=== PATIENT | female | born 1940 | race Caucasian/White ===

== ENCOUNTER 2016-07-25 13:08 | Emergency (ER) | payer OTHER ==
[~2016-07-25] VITALS: Ht 162.6 cm; Wt 90.7 kg
--- NOTE | ~2016-07-25 | EKG ---
[place] [address] [facility] [employer] [place] [address] ELECTROCARDIOGRAM REPORT Name: NORBERTO PLEITEZ MANI [facility]: [facility] [id number] Admission: 07/25/16 Attend Phys: Discharge: 07/25/16 Date of : 42 Report #: [id number] THIS REPORT FOR: //name// [facility] ED Test Date: 2016-07-25 Test Time: 13:13:08 Pat Name: NORBERTO PLEITEZ Department: Room: Gender: F Instrumentation Designer: MZOOK : 1940 Requested By: Uriel Gil Order Number: [id number] MD: Charbel Colon Measurements Intervals [place] Rate: 63 P: 2 MN: 179 QRS: 15 QRSD: 98 T: 49 QT: 432 QTc: 443 Interpretive Statements Sinus rhythm Low voltage, precordial leads No previous ECG available for comparison Electronically Signed On 07-26-2016 7:55:46 BRIM ROUNDER by Charbel Colon [email or web address] <ELECTRONICALLY SIGNED> By: Charbel Colon MD, [facility] 07/26/16 0755 1313 1313 Charbel Colon MD, FACC /EPI
[~2016-07-25 13:08] MED LIST: FISH OIL 1,001000 M2 PO; GLUCOSAMINE HC500 MG PO; LEVOTHYROXIN0.125 MG PO; LEVSIN PO; MULTIVITAMINS1 EAC7 PO; SIMVASTATIN40 MG PO; TUMS PO; ZESTRIL10 MG PO
[2016-07-25 13:24] LABS: BASOPHILS 0.7 % (0.0-2.0); EOSINOPHILS 2.8 % (0.0-3.0); HEMATOCRIT 41.2 % (37.0-47.0); HEMOGLOBIN 13.7 gm/dL (12.0-15.0); LYMPHOCYTES 31.2 % (24.0-44.0); MCH 29.6 pg (26.0-34.0); MCHC 33.2 % (28.0-37.0); MCV 89.3 fL (80.0-100.0); MONOCYTES 6.2 % (1.0-8.0); PLATELET COUNT 176 thou/uL (150-400); POLYS 59.1 % (36.0-66.0); RBC 4.62 mil/uL (4.20-5.00); RDW 13.3 % (10.5-14.5); WBC 6.8 thou/uL (4.0-11.0)
[2016-07-25 13:26] LABS: MANUAL DIFF NO
[2016-07-25 13:32] LABS: ANION GAP 10 mmol/L (7-16); BUN 16 mg/dL (7-18); CALCIUM 8.7 mg/dL (8.5-10.1); CHLORIDE 105 mmol/L (98-107); CO2 26 mmol/L (21-32); CREATININE 1.1 mg/dL (0.6-1.3); GLUCOSE 134 mg/dL (70-99); POTASSIUM 4.2 mmol/L (3.5-5.1); SODIUM 141 mmol/L (136-145)
[2016-07-25 13:41] LABS: ALBUMIN 3.5 g/dL (3.4-5.0); ALKALINE PHOSPHATASE 90 U/L (46-116); SGOT 16 U/L (15-37); SGPT 25 U/L (30-65); TOTAL BILIRUBIN 0.4 mg/dL (<0.1-1.0); TOTAL PROTEIN 6.6 g/dL (6.4-8.2); TROPONIN-I < 0.04 ng/mL (<0.04-0.07)
[2016-07-25 14:51] VITALS: BP 175/89
== END 2016-07-25 14:51 | disposition home or self-care (01) ==
LOC: ER 13:08
PROVIDERS: Physician Assistant
DX: R55 Syncope and collapse (principal); E86.0 Dehydration; I95.1 Orthostatic hypotension; I10 Essential (primary) hypertension; F10.99 Alcohol use, unspecified with unspecified alcohol-induced disorder

== ENCOUNTER → 2017-09-08 | Outpatient (CLI) | payer OTHER ==
[~2017-09-08] MED LIST changes: +ASPIR 8181 M1 PO; +KEFLEX500 M1 PO; +LISINOPRIL20 MG PO; +LOPRESSOR25 PO; +METOPROLOL SUCC25 M1 PO; +OMEPRAZOLE 20 M20 M1 PO; +SYNTHROID137 MC1 PO; +XANAX 0.5 MG0.5 MG PO
== END ==
LOC: ULTRA 12:45
DX: M25.562 Pain in left knee (principal)

== ENCOUNTER → 2017-12-22 | Outpatient (CLI) | payer OTHER ==
[~2017-12-22] MED LIST changes: -ASPIR 8181 M1 PO; -KEFLEX500 M1 PO; -LISINOPRIL20 MG PO; -LOPRESSOR25 PO; -METOPROLOL SUCC25 M1 PO; -OMEPRAZOLE 20 M20 M1 PO; -SYNTHROID137 MC1 PO; -XANAX 0.5 MG0.5 MG PO
== END ==
LOC: ULTRA 06:05
DX: N28.1 Cyst of kidney, acquired (principal)

== ENCOUNTER → 2017-12-30 | Outpatient (CLI) | payer OTHER ==
[~2017-12-30] MED LIST changes: +KEFLEX500 M1 PO; +METOPROLOL SUCC25 M1 PO
--- NOTE | ~2017-12-30 | CATHLAB ---
[place] [address] [facility] [place] [address] INVASIVE PROCEDURE REPORT Name: NORBERTO PLEITEZ Room #: REG CL [facility]#: [id number] Admission: 12/30/17 Attend Phys: Jaren Ledesma Discharge: Date of : 42 Date of Service: 01/04/18 2318 Report #: [id number] THIS REPORT FOR: //name// CC: Jaren So DATE OF SERVICE: 12/30/2017 INDICATIONS: This is a 77-year-old female patient with paroxysmal atrial fibrillation with palpitations and near syncope. Study is obtained to monitor same. PROCEDURE: Percutaneous insertion of an implantable loop recorder with local anesthetic. WAREHOUSE LOGISTICS COORDINATOR: Jaren Estrada M.D. DEVICE: [employer] model #[id number], serial #[id number]. BRIEF DESCRIPTION OF PROCEDURE: After informed consent was obtained, the patient was brought to the cardiac catheterization prep and hold. The chest was prepped and draped in the usual sterile manner. Utilizing 1% lidocaine without epinephrine, the proposed incision site was instilled. A spinal needle was then utilized to instill a tract subcutaneously with the lidocaine. Using an 11 blade, an incision was then made approximately 0.5 cm in length. Utilizing both sharp and blunt dissection, a tract was then developed. Utilizing the standard insertion tool, the device was then inserted percutaneously without complications. The subcutaneous tissue was then sewn with a running locking nonabsorbable stitch. The skin was closed with 3-0 Vicryl, Steri-Strips, 4 x 4's and Op-Site. The patient tolerated the procedure well. There were no complications. By: 2318 0816 Jaren Estrada MD /nt
[2017-12-30 12:30] VITALS: BP 112/59
== END | disposition home or self-care (01) ==
LOC: CATH 09:01
DX: I48.0 Paroxysmal atrial fibrillation (principal)

== ENCOUNTER 2018-01-08 19:01 | Emergency (ER) | payer OTHER ==
[~2018-01-08] VITALS: Ht 162.6 cm; Wt 86.2 kg
--- NOTE | ~2018-01-08 | EKG ---
[place] [address] [email or web address] [address] ELECTROCARDIOGRAM REPORT Name: NORBERTO PLEITEZ Room #: DEP [facility]#: [id number] Admission: 01/08/18 Attend Phys: Discharge: 01/08/18 Date of : 42 Report #: [id number] THIS REPORT FOR: //name// [facility] ED Test Date: 2018-01-08 Test Time: 19:05:40 Pat Name: NORBERTO PLEITEZ Department: Room: Gender: F Account Retention Representative: Vibha SPAULDING : 1940 Requested By: Uriel Gil Order Number: [id number] MD: Charbel Colon Measurements Intervals [place] Rate: 64 P: 32 MS: 173 QRS: -9 QRSD: 109 T: 28 QT: 432 QTc: 446 Interpretive Statements Sinus rhythm Low voltage, extremity and precordial leads Compared to ECG 11/11/2017 11:34:18 No significant changes Electronically Signed On 01-09-2018 17:04:23 CDT by Charbel Colon [email or web address] <ELECTRONICALLY SIGNED> By: Charbel Colon MD, [facility] 01/09/18 1704 D: [id number] 04 Charbel Colon MD, FACC /EPI
[~2018-01-08 19:01] MED LIST changes: -KEFLEX500 M1 PO; -METOPROLOL SUCC25 M1 PO
[2018-01-08 19:25] LABS: BASOPHILS 1.1 % (0.0-2.0); EOSINOPHILS 1.2 % (0.0-3.0); HEMATOCRIT 44.3 % (37.0-47.0); HEMOGLOBIN 15.4 gm/dL (12.0-15.0); LYMPHOCYTES 34.2 % (24.0-44.0); MCH 30.5 pg (26.0-34.0); MCHC 34.8 g/dL (28.0-37.0); MCV 87.6 fL (80.0-100.0); MONOCYTES 5.5 % (1.0-8.0); PLATELET COUNT 231 thou/uL (150-400); RBC 5.06 mil/uL (4.20-5.00); RDW 13.4 % (10.5-14.5); WBC 8.7 thou/uL (4.0-11.0)
[2018-01-08 19:32] LABS: ANION GAP 11 mmol/L (7-16); BUN 9 mg/dL (7-18); CALCIUM 9.3 mg/dL (8.5-10.1); CHLORIDE 104 mmol/L (98-107); CO2 25 mmol/L (21-32); CREATININE 0.9 mg/dL (0.6-1.0); GLUCOSE 111 mg/dL (74-106); POTASSIUM 3.9 mmol/L (3.5-5.1); SODIUM 140 mmol/L (136-145)
[2018-01-08 19:40] LABS: ALBUMIN 4.2 g/dL (3.4-5.0); SGOT 19 U/L (15-37); SGPT 25 U/L (30-65); TOTAL BILIRUBIN 0.6 mg/dL (<0.1-1.0); TOTAL PROTEIN 7.6 g/dL (6.4-8.2); TROPONIN-I <0.06 ng/mL (<0.06)
[2018-01-08 19:49] LABS: URINE BILIRUBIN NEGATIVE (Negative); URINE BLOOD NEGATIVE (Negative); URINE CLARITY CLEAR; URINE COLOR YELLOW; URINE GLUCOSE-RANDOM* TRACE (Negative); URINE KETONES NEGATIVE (Negative); URINE NITRITE-REFLEX NEGATIVE (Negative); URINE PROTEIN (DIPSTICK) NEGATIVE (Negative); URINE UROBILINOGEN 0.2 E.U./dl (0.2-1.0)
[2018-01-08 19:55] LABS: URINE LEUKOCYTES-REFLEX 2+ (Negative)
[2018-01-08 20:04] LABS: CASTS None Seen /LPF (None Seen); SQUAMOUS 0-3 Few /LPF (0-3)
[2018-01-08 20:05] LABS: BACTERIA-REFLEX 1-9 Few /HPF (None Seen); CRYSTALS None Seen /LPF (None Seen); URINE RBC None Seen /HPF (0-2); URINE WBC-REFLEX 0-5 Rare /HPF (0-5)
[2018-01-08] MEDS ORDERED: KEFLEX500 M1 PO (20:24)
[2018-01-08] MEDS ORDERED: METOPROLOL SUCC25 M1 PO (20:24)
[2018-01-08 20:52] VITALS: BP 126/81
[2018-01-12] MEDS ORDERED: ASPIR 8181 M1 PO (07:34)
[2018-01-12] MEDS ORDERED: XANAX 0.5 MG0.5 MG PO (07:34)
[2018-01-12] MEDS ORDERED: OMEPRAZOLE 20 M20 M1 PO (07:34)
[2018-01-12] MEDS ORDERED: GLUCOSAMINE HC500 MG PO (07:35)
[2018-01-12] MEDS ORDERED: SYNTHROID137 MC1 PO (07:36)
[2018-01-12] MEDS ORDERED: LISINOPRIL20 MG PO (07:36)
[2018-01-12] MEDS ORDERED: LOPRESSOR25 PO (07:37)
== END 2018-01-08 20:55 | disposition home or self-care (01) ==
LOC: ER 19:01
PROVIDERS: Physician Assistant
DX: N39.0 Urinary tract infection, site not specified (principal); E05.90 Thyrotoxicosis, unspecified without thyrotoxic crisis or storm; R42 Dizziness and giddiness; I10 Essential (primary) hypertension; E78.00 Pure hypercholesterolemia, unspecified

== ENCOUNTER → 2018-01-12 | Outpatient (CLI) | payer OTHER ==
[~2018-01-12] VITALS: Ht 162.6 cm; Wt 86.2 kg
[~2018-01-12] MED LIST changes: +ASPIR 8181 M1 PO; +KEFLEX500 M1 PO; +LISINOPRIL20 MG PO; +LOPRESSOR25 PO; +METOPROLOL SUCC25 M1 PO; +OMEPRAZOLE 20 M20 M1 PO; +SYNTHROID137 MC1 PO; +XANAX 0.5 MG0.5 MG PO
--- NOTE | ~2018-01-12 | P ---
[facility] [place] [address] PROCEDURE REPORT Name: NORBERTO PLEITEZ Room #: REG [facility]#: [id number] Admission: 01/12/18 Attend Phys: Dane Hernandez MD Discharge: Date of : 42 Report #: [id number] THIS REPORT FOR: //name// CC: Krishna Hernandez DATE OF SERVICE: 01/12/2018 PREOPERATIVE DIAGNOSIS: Supraventricular tachycardia. POSTOPERATIVE DIAGNOSIS: Typical atrioventricular emily reentrant tachycardia. HISTORY OF PRESENT ILLNESS: The patient is a 77-year-old female with a history of palpitations recently hospitalized at [facility] with no documented arrhythmias. She recently saw Dr. Estrada who implanted a monitoring and evaluation advisor and this revealed an episode of supraventricular tachycardia. She is here for SVT ablation. PROCEDURE: 1. SVT ablation, CPT code 02970. 2. EP left atrial pacing and recording, CPT code 67274. 3. Program stimulation and pacing after IV drugs, CPT code 41574. 4. 3D mapping, CPT code 88425. 5. Mapping of the tachycardia, CPT code 87442. ANESTHESIA: The patient underwent MAC anesthesia with no anesthesia related complications. DESCRIPTION OF PROCEDURE: The patient underwent informed consent. We discussed the details of the procedure including the risks, which include but not limited to bleeding, vascular damage, cardiac perforation as well as stroke or MT. She understood these risks and was willing to proceed. The patient was brought to the EP laboratory in a fasting and sedated state, prepped and draped in a sterile fashion. I obtained access to the bilateral femoral veins placing an 8- and 6-Cameroonian short sheath in the right femoral vein and a 6- and 7-Cameroonian short sheath in the left femoral vein using the modified Seldinger technique. Next, under fluoroscopy, I placed 3 quadripolar catheters into the HRA, His, and RV positions. Next, I placed a decapolar catheter into the coronary sinus. Of note, I had difficulty placing the decapolar catheter in the coronary sinus. It appeared that I was more in a middle cardiac vein. I attempted to move this a few times and this was unsuccessful. Therefore, retrograde atrial activation looked unusual, but this was explained by the CS catheter positioning. A basic EP study was performed. Atrial burst pacing was performed. At [address] [address] PROCEDURE REPORT Name: NORBERTO PLEITEZ Room #: REG [facility] Rose#: [id number] Admission: 01/12/18 Attend Phys: Dane Hernandez MD Discharge: Date of : 42 Report #: [id number] baseline, the patient was in sinus rhythm with a sinus cycle length of 955 milliseconds, VA interval 150 milliseconds, QRS duration 90 milliseconds, QT interval 430 milliseconds, AH interval 100 milliseconds, and HV interval 45 milliseconds. Atrial burst pacing was performed and AV block was noted at 330 milliseconds. There was evidence of a long AH interval suggestive of a slow pathway. Ventricular pacing was performed and VA block was noted at 410 milliseconds. Atrial ERP was noted at 220 milliseconds at a 400-millisecond basic drive cycle length. Ventricular ERP was noted at 260 milliseconds at a 500-millisecond basic drive cycle length. With atrial burst pacing, the patient did have 2-3 episodes of atrial fibrillation that all lasted about 5-10 seconds and terminated on their own. Next, isoproterenol infusion was initiated at 1 mcg per minute and with atrial burst pacing, SVT was induced on 2 separate occasions. SVT demonstrated tachycardia cycle length of 310 milliseconds with a septal VA time of 32 milliseconds. Ventricular entrainment demonstrated the VAHV response consistent with typical AV emily reentrant tachycardia. On isoproterenol, VA block was noted at 270 milliseconds and AV block was noted at 280 milliseconds. 3D MAPPING AND ABLATION OF TACHYCARDIA: Next, I exchanged my HRA catheter and short sheath for an SR0 sheath and a [employer] Be 4 mm ablation catheter. Of note, finding the slow pathway, it was a little challenging as my catheter would easily sleep into the coronary sinus. However, I eventually found a nice slow pathway potential and we performed 2 ablation lesions at this site with nice slow junctionals. We probably had at least 60 seconds of junctionals during these 2 torres. POST-ABLATION TESTING: Isoproterenol was initiated immediately and atrial burst pacing was performed. AV block was noted at 300 milliseconds. Atrial ERP was noted at 190 milliseconds with a 400-millisecond basic drive cycle length. Ventricular burst pacing was performed and VA block was less than 300 milliseconds. We continued testing on isoproterenol 1 mcg per minute for approximately 20 minutes, then decreased this to 0.5 and tested on this for several minutes and then, isoproterenol was turned off. There was only evidence of a single AV emily echo, but we could no longer induce tachycardia. As such, the procedure was concluded. Post-ablation, the patient was in sinus rhythm with a sinus cycle length of 790 milliseconds, VA interval 175 milliseconds, QRS duration 90 milliseconds, QT interval 390 milliseconds, AH interval 90 milliseconds, and HV interval of 50 milliseconds. As such, all catheters and sheaths were pulled. Hemostasis was obtained and the patient awoke neurologically and hemodynamically intact with no complications. CONCLUSIONS: 1. Successful ablation of typical AV emily reentrant tachycardia. 2. Normal SA emily function. 3. Normal AV emily function. [facility] [address] [place] [address] PROCEDURE REPORT Name: NORBERTO PLEITEZ Room #: [facility] Rose#: [id number] Admission: 01/12/18 Attend Phys: Dane Hernandez MD Discharge: Date of : 42 Report #: [id number] 4. Normal His-Purkinje function. 5. No other inducible arrhythmias on or off isoproterenol. <ELECTRONICALLY SIGNED> By: Dane Hernandez MD 01/13/18 1308 1159 1459 Dane Hernandez MD /nt
[2018-01-12 07:31] VITALS: BP 133/68
[2018-01-12 07:41] LABS: ABSOLUTE NEUTROPHILS 3.6 thou/uL (1.4-8.2); BASOPHILS 0.8 % (0.0-2.0); EOSINOPHILS 2.7 % (0.0-3.0); HEMATOCRIT 38.9 % (37.0-47.0); HEMOGLOBIN 13.6 gm/dL (12.0-15.0); LYMPHOCYTES 37.4 % (24.0-44.0); MCH 30.3 pg (26.0-34.0); MCV 86.7 fL (80.0-100.0); MONOCYTES 6.2 % (1.0-8.0); PLATELET COUNT 203 thou/uL (150-400); POLYS 52.9 % (36.0-66.0); RBC 4.49 mil/uL (4.20-5.00); RDW 13.6 % (10.5-14.5); WBC 6.7 thou/uL (4.0-11.0)
[2018-01-12 07:51] LABS: CALCIUM 8.7 mg/dL (8.5-10.1); POTASSIUM 4.1 mmol/L (3.5-5.1)
[2018-01-12 07:56] LABS: ALBUMIN 3.5 g/dL (3.4-5.0); APTT 25.9 Seconds (24.5-32.8); PROTIME 10.6 Seconds (9.3-11.4); TOTAL BILIRUBIN 0.5 mg/dL (<0.1-1.0); TOTAL PROTEIN 6.5 g/dL (6.4-8.2)
== END | disposition home or self-care (01) ==
LOC: CATH 06:19
PROVIDERS: Internal Medicine Cardiovascular Disease
DX: I47.1 Supraventricular tachycardia (principal); I10 Essential (primary) hypertension; E78.00 Pure hypercholesterolemia, unspecified; Z82.49 Family history of ischemic heart disease and other diseases of the circulatory system; R55 Syncope and collapse
CPT/HCPCS: 62110; 62900; 70005

== ENCOUNTER 2018-01-13 02:42 | Emergency (ER) | payer OTHER ==
[~2018-01-13] VITALS: Ht 162.6 cm; Wt 86.2 kg
--- NOTE | ~2018-01-13 | EKG ---
[place] [address] [facility] [place] [address] ELECTROCARDIOGRAM REPORT Name: NORBERTO PLEITEZ Room #: DEP [facility]#: [id number] Admission: 01/13/18 Attend Phys: Discharge: 01/13/18 Date of : 42 Report #: [id number] THIS REPORT FOR: //name// [facility] ED Test Date: 2018-01-13 Test Time: 02:47:45 Pat Name: NORBERTO PLEITEZ Department: Room: Gender: F Capacitor Repairer: KIRSTYCarlos : 1940 Requested By: Foreign Retana Order Number: [id number] MD: Charbel Colon Measurements Intervals [place] Rate: 65 P: 20 VT: 175 QRS: -7 QRSD: 99 T: 29 QT: 426 QTc: 443 Interpretive Statements Sinus rhythm Low voltage, precordial leads Compared to ECG 01/08/2018 19:05:40 No significant changes Electronically Signed On 01-13-2018 8:17:31 CDT by Charbel Colon [email or web address] <ELECTRONICALLY SIGNED> By: Charbel Colon MD, [facility] 01/13/18 0817 D: 07246 6 Charbel Colon MD, [facility] /EPI
== END 2018-01-13 05:20 | disposition home or self-care (01) ==
LOC: ER 02:42
DX: F41.9 Anxiety disorder, unspecified (principal); I10 Essential (primary) hypertension; E78.00 Pure hypercholesterolemia, unspecified

== ENCOUNTER → 2019-05-28 | Outpatient (CLI) | payer OTHER | LOC: NUC 10:15 | DX: Z78.0 Asymptomatic menopausal state (principal) ==